=== PATIENT | male | born 1990 | race Hispanic/Latino ===

== ENCOUNTER 2017-04-10 00:43 | Emergency (ER) | payer BC ==
[2017-04-10 01:06] VITALS: TEMP 98.3
[2017-04-10] MEDS ORDERED: DiphenhydrAMINE 50 mg/ml Inj ONE (01:12)
--- NOTE | 2017-04-10 01:15 | ED PDOC ---
Arrival/HPI - General Chief Complaint: Allergic Reaction Time Seen by Provider: 04/10/17 01:12 Historian: Patient - History of Present Illness Narrative History of Present Illness (Text): 04/10/17 01:15 Rosalino Weinstein is a 27 year old male, with no significant past medical history, who presents to the ED complaining of an allergic reaction tonight. Patient states he developed a diffuse pruritic rash to bilateral arms and some lip swelling tonight. Patient states he is unsure what triggered the reaction but notes he ate steak, turkey, and pizza with assorted toppings earlier tonight. Patient denies any chest pain, shortness of breath, wheezing, nausea, vomiting, diarrhea, urinary symptoms, throat swelling, or any other complaints. Time/Duration: Other (tonight) Symptom Onset: Gradual Symptom Course: Unchanged Activities at Onset: Rest, Light Context: Home Past Medical History - Provider Review Nursing Documentation Reviewed: Yes - Psychiatric Hx Substance Use: Yes (marijuana) Family/Social History - Physician Review Nursing Documentation Reviewed: Yes Family/Social History: Unknown Family HX Smoking Status: Heavy Smoker > 10 Cigarettes Daily Hx Alcohol Use: Yes Frequency of alcohol use: Socially Hx Substance Use: Yes (marijuana) Allergies/Home Meds Allergies/Adverse Reactions: Allergies No Known Allergies Allergy (Verified 04/10/17 01:04) Review of Systems - Physician Review All systems were reviewed & negative as marked: Yes - Review of Systems Constitutional: Normal. absent: Fevers Eyes: Normal ENT: Normal Respiratory: Normal. absent: SOB, Cough Cardiovascular: Normal. absent: Chest Pain, Syncope Gastrointestinal: Normal. absent: Diarrhea, Nausea, Vomiting Genitourinary Male: Normal. absent: Dysuria, Frequency, Hematuria, Urinary Output Changes Musculoskeletal: Normal. absent: Back Pain Skin: Rash, Pruritis, Other (+mild lip swelling) Neurological: Normal. absent: Headache, Dizziness Endocrine: Normal Hemo/Lymphatic: Normal Psychiatric: Normal Physical Exam Vital Signs Reviewed: Yes Vital Signs Temp Pulse Resp BP Pulse Ox 04/10/17 02:50 84 18 126/73 98 04/10/17 01:04 98.3 F 125 H 16 128/84 92 L Temperature: Afebrile Blood Pressure: Normal Pulse: Regular Respiratory Rate: Normal Appearance: Positive for: Well-Appearing, Non-Toxic, Comfortable Pain Distress: None Mental Status: Positive for: Alert and Oriented X 3 - Systems Exam Head: Present: Normocephalic, Swelling (Minimal swelling to upper and lower lip) Pupils: Present: PERRL Extroacular Muscles: Present: EOMI Conjunctiva: Present: Normal Ears: Present: Normal, NORMAL TM, Normal Canal. No: Erythema Mouth: Present: Moist Mucous Membranes Pharnyx: Present: Normal. No: ERYTHEMA, EXUDATE, Peritonsilar Swelling, Uvular Deviation, Muffled/Hoarse Voice, Strider, Soft Palate/Uvular Edema Nose (External): Present: Atraumatic Nose (Internal): Present: Normal Inspection Neck: Present: Normal Range of Motion Respiratory/Chest: Present: Clear to Auscultation, Good Air Exchange. No: Respiratory Distress, Accessory Muscle Use Cardiovascular: Present: Regular Rate and Rhythm, Normal S1, S2. No: Murmurs Upper Extremity: Present: Normal ROM, NORMAL PULSES, Neurovascularly Intact, Capillary Refill < 2s, Other (Urticaria to bilateral arms/hands). No: Cyanosis , Edema, Tenderness, Swelling, Erythema, Temperature Abnormalties, Deformity Neurological: Present: GCS=15, CN II-XII Intact, Speech Normal Skin: Present: Warm, Dry, Normal Color. No: Rashes Psychiatric: Present: Alert, Oriented x 3, Normal Insight, Normal Concentration Medical Decision Making ED Course and Treatment: 04/10/17 01:15 Impression: 27 year old male c/o an allergic reaction tonight. Differential Diagnosis included but are not limited to: allergic reaction vs. urticaria Plan: -- Benadryl -- Pepcid -- Solu-medrol -- Reassess and disposition Progress Notes: - Medication Orders Current Medication Orders: Discontinued Medications Diphenhydramine HCl (Benadryl) Confirm Administered Dose 50 mg .ROUTE .STK-MED ONE Stop: 04/10/17 01:13 Last Admin: 04/10/17 01:20 Dose: Diphenhydramine HCl (Benadryl) 50 mg IVP ONCE ONE Stop: 04/10/17 01:18 Last Admin: 04/10/17 01:21 Dose: Famotidine (Pepcid) 20 mg IVP STAT STA Stop: 04/10/17 01:21 Last Admin: 04/10/17 01:35 Dose: 20 mg Methylprednisolone (Solu-Medrol) Confirm Administered Dose 125 mg .ROUTE .STK- MED ONE Stop: 04/10/17 01:13 Last Admin: 04/10/17 01:20 Dose: 125 mg Methylprednisolone (Solu-Medrol) 125 mg IVP ONCE ONE Stop: 04/10/17 01:18 Last Admin: 04/10/17 01:22 Dose: - Scribe Statement The provider has reviewed the documentation as recorded by the Faustino Hurtado Provider Attestation: All medical record entries made by the Faustino were at my direction and personally dictated by me. I have reviewed the chart and agree that the record accurately reflects my personal performance of the history, physical exam, medical decision making, and the department course for this patient. I have also personally directed, reviewed, and agree with the discharge instructions and disposition. Disposition/Present on Arrival - Present on Arrival Any Indicators Present on Arrival: No History of DVT/PE: No History of Uncontrolled Diabetes: No Urinary Catheter: No History of Decub. Ulcer: No History Surgical Site Infection Following: None - Disposition Have Diagnosis and Disposition been Completed?: Yes Diagnosis: Allergic reaction, Urticaria Disposition: HOME/ ROUTINE Disposition Time: 02:49 Patient Plan: Discharge Condition: STABLE Discharge Instructions (ExitCare): Urticaria (ED), Allergies (ED) Additional Instructions: Take meds as prescribed/follow up with your doctor this week/any recurrent worsening symptoms return to the emergency room Prescriptions: DiphenhydrAMINE [Benadryl] 50 mg PO Q6 PRN #24 cap PRN Reason: Itching / Pruritus predniSONE [Prednisone] 40 mg PO DAILY #10 tab
[2017-04-10] MEDS ORDERED: DiphenhydrAMINE 50 mg/ml Inj IVP ONE (01:17)
[2017-04-10 03:39] VITALS: BP 126/73; PULSE 84; RESP 18; O2SAT 98
== END 2017-04-10 02:50 | disposition home or self-care (01) ==
LOC: ED 00:43
DX: L50.0 Allergic urticaria (principal)
CPT/HCPCS: 96374; 99282; J2930